=== PATIENT | female | born 1970 | race Caucasian/White ===

== ENCOUNTER 2024-05-03 05:44 | Inpatient (IN) | payer BC ==
[2024-05-03] MEDS ORDERED: PHENAZOPYRIDINE HCL 100 MG TABLET (FP) PO ONE (06:00)
[2024-05-03] MEDS ORDERED: CEFAZOLIN 2 GM in DEXTROSE 5%-WATER - 100 ML IVPB ONE (07:00)
[2024-05-03] MEDS ORDERED: HYDROmorphone HCl 2 MG/ML VIAL ONE (07:36)
[2024-05-03] MEDS ORDERED: ROCURONIUM BROMIDE 50 MG/5 ML SYRINGE ONE ×2 (07:36→08:34)
[2024-05-03] MEDS ORDERED: PROPOFOL 20 ML ONE (07:37)
[2024-05-03] MEDS ORDERED: MIDAZOLAM HCL 2 MG/2 ML SINGLE DOSE VIAL ONE (07:37)
[2024-05-03] MEDS ORDERED: SEVOFLURANE 250 ML BTL ONE ×2 (07:45→09:14)
[2024-05-03] MEDS ORDERED: ACETAMINOPHEN INJECTION 100 ML ONE (07:45)
[2024-05-03] MEDS ORDERED: LIDOCAINE HCL 2% 100 MG/5 ML DISP.SYRIN ONE (07:46)
[2024-05-03] MEDS ORDERED: DEXAMETHASONE SOD PHOSPHATE 4 MG/1 ML VIAL ONE (07:48)
[2024-05-03] MEDS ORDERED: TRANEXAMIC ACID 1000 MG/10 ML VIAL ONE (07:48)
[2024-05-03] MEDS ORDERED: ONDANSETRON 4 MG/2 ML VIAL ONE (07:48)
[2024-05-03] MEDS ORDERED: ceFAZolin SODIUM 1 GM VIAL ONE (07:55)
[2024-05-03] MEDS: ceFAZolin SODIUM 1 GM VIAL IVPB ONE (07:57)
[2024-05-03] MEDS ORDERED: TRANEXAMIC ACID 1000 MG/10 ML VIAL IVPUSH ONE (08:00)
[2024-05-03] MEDS ORDERED: ACETAMINOPHEN 1000 MG/100 ML BAG IVPB ONE (08:25)
[2024-05-03] MEDS ORDERED: SUGAMMADEX SODIUM 200 MG/2 ML VIAL ONE (09:17)
[2024-05-03] MEDS ORDERED: KETOROLAC TROMETHAMINE 30 MG/1 ML VIAL ONE (09:17)
[2024-05-03] MEDS ORDERED: ONDANSETRON 4 MG/2 ML VIAL IVPUSH PRN (11:07)
[2024-05-03] MEDS ORDERED: oxyCODONE HCL 5 MG TABLET PO PRN ×2 (11:07)
[2024-05-03] MEDS ORDERED: PROMETHAZINE HCL 25 MG/1 ML VIAL IVPB PRN (11:07)
[2024-05-03] MEDS ORDERED: LACTATED RINGERS SOLUTION 1,000 ML IV SCH (11:15)
[2024-05-03] MEDS: CEFAZOLIN 2 GM/D5W 2 GM/50 ML ML IVPB SCH (17:34)
[2024-05-03] MEDS: metFORMIN HCL 500 MG TABLET (FP) PO SCH (21:45)
[2024-05-04] MEDS: ACETAMINOPHEN 1000 MG/100 ML BAG IVPB PRN ×2 (01:14→22:44)
[2024-05-04 15:27] VITALS: RESP 18
[2024-05-04] MEDS: IBUPROFEN 400 MG TABLET (FP) PO PRN (19:32)
[2024-05-05 07:56] VITALS: BP 106/54; PULSE 62; TEMP 97.7
== END 2024-05-05 11:40 | disposition home or self-care (01) | DRG 743 ==
LOC: JASUSAT 05:44 → J6S 12:55 → JASUSAT 12:56 → J6S 12:56
PROVIDERS: ADMIT Obstetrics & Gynecology; ATTEND Obstetrics & Gynecology
PROC: 0UT9FZZ Resection of Uterus, Via Natural or Artificial Opening With Percutaneous Endoscopic Assistance (ICD-10-PCS; principal; 2024-05-05)
PROC: 0UB77ZZ Excision of Bilateral Fallopian Tubes, Via Natural or Artificial Opening (ICD-10-PCS; 2024-05-05)
PROC: 0UB04ZZ Excision of Right Ovary, Percutaneous Endoscopic Approach (ICD-10-PCS; 2024-05-05)
PROC: 8E0W4CZ Robotic Assisted Procedure of Trunk Region, Percutaneous Endoscopic Approach (ICD-10-PCS; 2024-05-05)
DX: D25.1 Intramural leiomyoma of uterus (principal); D25.2 Subserosal leiomyoma of uterus; R10.2 Pelvic and perineal pain; N83.291 Other ovarian cyst, right side
CPT/HCPCS: 74018-TC-FY; 81025; 82962; 86850; 86900; 86901; 88305-TC; 88307-TC; 94010; 94760; J0131